=== PATIENT | female | born 1985 | race Caucasian/White ===

== ENCOUNTER 2021-11-16 16:43 | Emergency (ER) | payer SELFPAY ==
[2021-11-16 17:10] VITALS: BP 146/99
[2021-11-16] MEDS ORDERED: KETOROLAC 30 MG/1 ML INJ IM ONE (18:01)
--- NOTE | 2021-11-16 18:48 | XRay Report ---
RIGHT SHOULDER 3 VIEWS INDICATION / CLINICAL INFORMATION: right shoulder pain COMPARISON: None available. FINDINGS: BONES / JOINT(S): No acute fracture or subluxation. No significant arthritis. SOFT TISSUES: No significant abnormality. ADDITIONAL FINDINGS: None. Signer Name: Garfield Bailey MD Signed: 11/16/2021 6:44 PM Workstation Name: [id number]
--- NOTE | 2021-11-16 19:07 | Emergency Department Report ---
ED Upper Extremity Inj HPI - General Chief Complaint: Fall Stated Complaint: SHOULDER PAIN Source: patient Mode of arrival: Ambulatory Limitations: Language Barrier, Other - History of Present Illness Initial Comments: 36-year-old male presents to the ED complaining of right shoulder pain. Patient states that she works at [employer] and had she was lifting a box off a shelf box when approximately 35 to 40 pound fell on her right shoulder. She states that incident happened x1 day ago. Patient has no obvious deformity noted to the shoulder area. Patient able to move right shoulder without any difficulty. States that pain is currently 8 out of 10. No distracting injury is noted. Patient is alert and oriented x3. No acute distress noted. No ill appearance noted. MD Complaint: Injury to:: right, shoulder Onset/Timin -: days(s) Other Extremity Injury: Shoulder: Right, Left Other Injuries: none Severity scale (0 -10): 8 Improves With: none, immobilization Worsens With: movement of extremity Context: direct blow Associated Symptoms: denies other symptoms - Related Data Previous Rx's Medication Instructions Recorded Last Taken Type Cyclobenzaprine [Flexeril] 10 mg PO TID PRN 15 Days #30 tab 11/16/21 Unknown Rx Ibuprofen [Motrin] 800 mg PO Q8HR PRN 15 Days #30 11/16/21 Unknown Rx tablet Allergies Allergy/AdvReac Type Severity Reaction Status Date / Time No Known Allergies Allergy Verified 11/16/21 17:07 ED Review of Systems ROS: Stated complaint: SHOULDER PAIN Other details as noted in HPI Constitutional: denies: chills, fever Eyes: denies: eye pain, eye discharge, vision change ENT: denies: ear pain, throat pain Respiratory: denies: cough, shortness of breath, wheezing Cardiovascular: denies: chest pain, palpitations Endocrine: no symptoms reported Gastrointestinal: denies: abdominal pain, nausea, diarrhea Genitourinary: denies: urgency, dysuria, discharge Musculoskeletal: other (Shoulder pain). denies: back pain, joint swelling, arth ralgia Skin: denies: rash, lesions Neurological: denies: headache, weakness, paresthesias Psychiatric: denies: anxiety, depression Hematological/Lymphatic: denies: easy bleeding, easy bruising ED Past Medical Hx - Medications Home Medications: Home Medications Medication Instructions Recorded Confirmed Last Taken Type Cyclobenzaprine [Flexeril] 10 mg PO TID PRN 15 Days #30 tab 11/16/21 Unknown Rx Ibuprofen [Motrin] 800 mg PO Q8HR PRN 15 Days #30 11/16/21 Unknown Rx tablet ED Physical Exam - General Limitations: Language Barrier, Other General appearance: alert, in no apparent distress - Head Head exam: Present: atraumatic, normocephalic - Eye Eye exam: Present: normal appearance - ENT ENT exam: Present: mucous membranes moist - Neck Neck exam: Present: normal inspection - Respiratory Respiratory exam: Present: normal lung sounds bilaterally. Absent: respiratory distress - Cardiovascular Cardiovascular Exam: Present: regular rate, normal rhythm. Absent: systolic murmur, diastolic murmur, rubs, gallop - GI/Abdominal GI/Abdominal exam: Present: soft, normal bowel sounds - Extremities Exam Extremities exam: Present: normal inspection - Expanded Upper Extremity Exam Right Shoulder Exam: Present: normal inspection, full ROM, tenderness. Absent: swelling, abrasion, deformity, crepidus - Back Exam Back exam: Present: normal inspection - Neurological Exam Neurological exam: Present: alert, oriented X3 - Psychiatric Psychiatric exam: Present: normal affect, normal mood - Skin Skin exam: Present: warm, dry, intact, normal color. Absent: rash ED Course Vital Signs 11/16/21 17:08 Temperature 98.1 F Pulse Rate 86 Respiratory 16 Rate Blood Pressure 146/99 O2 Sat by Pulse 99 Oximetry ED Medical Decision Making - Radiology Data [facility] [address] [place] [address] XRay Report Signed Patient: RIGOBERTO HOGAN MR# : [id number] : 1985 Acct:[id number] Age/Sex: 36 / F ADM Date: 11/16/21 Loc: ED Attending Dr: Ordering Physician: SARAH VALENTIN Date of Service: 11/16/21 Procedure(s): XR shoulder 2+V RT Accession Number(s): [id number] cc: SARAH VALENTIN Fluoro Time In Minutes: RIGHT SHOULDER 3 VIEWS INDICATION / CLINICAL INFORMATION: right shoulder pain COMPARISON: None available. FINDINGS: BONES / JOINT(S): No acute fracture or subluxation. No significant arthritis. SOFT TISSUES: No significant abnormality. ADDITIONAL FINDINGS: None. Signer Name: Garfield Bailey MD Signed: 11/16/2021 6:44 PM Workstation Name: [id number] Transcribed By: ES Dictated By: Garfield Bailey MD Electronically Authenticated By: Garfield Bailey MD Signed Date/Time: 11/16/211843 DD/ 42 TD/TT: - Medical Decision Making 36-year-old male presents to the ED complaining of right shoulder pain. Patient states that she works at [employer] and had she was lifting a box off a shelf box when approximately 35 to 40 pound fell on her right shoulder. She states that incident happened x1 day ago. Patient has no obvious deformity noted to the shoulder area. Patient able to move right shoulder without any difficulty. States that pain is currently 8 out of 10. No distracting injury is noted. Patient is alert and oriented x3. No acute distress noted. No ill appearance noted. Physical examination is unremarkable Right shoulder x-ray showed no abnormality Rechecked the patient is resting quietly quietly and comfortable and feeling better. I discussed the results of diagnostic study, my clinical impression and the plan for further treatment with the patient. Patient agrees with plan and discharge at this present time. All question addressed. I have given the patient instruction regarding a diagnosis ,expectation ,follow- up and return precaution. I explained to the patient that emergent condition may arise and to return to the ED for new worsen and any new persisting condition. I have explained the importance of following up with the primary care physician or referral physician listed below has instructed. The patient verbalized understanding of discharge instruction. Critical care attestation.: If time is entered above; I have spent that time in minutes in the direct care of this critically ill patient, excluding procedure time. ED Disposition Clinical Impression: Right shoulder pain Qualifiers: Chronicity: acute Qualified Code(s): M25.511 - Pain in right shoulder Disposition: 01 HOME / SELF CARE / HOMELESS Is pt being admited?: No Does the pt Need Aspirin: No Condition: Stable Instructions: Shoulder Pain, How to Use Cold Therapy, [id number], Shoulder Pain, [id number] Additional Instructions: Return to ED for any worsening symptom Take medication as prescribed Prescriptions: Cyclobenzaprine [Flexeril] 10 mg PO TID PRN 15 Days #30 tab PRN Reason: Muscle Spasm Ibuprofen [Motrin] 800 mg PO Q8HR PRN 15 Days #30 tablet PRN Reason: Pain, Moderate (4-6) Referrals: PRIMARY CAREMD [Primary Care Provider] - 3-5 Days ALTON DALY MD [Staff Physician] - 3-5 Days Forms: Work/School Release Form(ED)
== END 2021-11-16 19:31 | disposition home or self-care (01) ==
LOC: ED 16:43
DX: M25.511 Pain in right shoulder (principal)
CPT/HCPCS: 73030; 96372; 99283; J1885